=== PATIENT | female | born 1955 | race Caucasian/White ===

== ENCOUNTER 2020-05-22 15:36 | Inpatient (IN) | payer MEDICARE, MEDICAID ==
[~2020-05-22] VITALS: Ht 162.6 cm; Wt 63.6 kg
[2020-05-22] MEDS ORDERED: NO HOME MEDS (17:22)
[2020-05-22 17:23] LABS: BASOPHILS # (AUTO) 0.1 X10'3 (0-0.2); BASOPHILS % (AUTO) 0.7 % (0-1); EOSINOPHILS # (AUTO) 0.1 X10'3 (0-0.9); HEMATOCRIT 41.9 % (35.0-45.0); HEMOGLOBIN 14.4 g/dl (12.0-16.0); LYMPHOCYTES # (AUTO) 1.2 X10'3 (1.1-4.8); LYMPHOCYTES % (AUTO) 13.4 % (21-51); MEAN CORPUSCULAR HEMOGLOBIN 30.5 PG (27.0-31.0); MEAN CORPUSCULAR HGB CONC 34.3 g/dL (33.0-36.5); MEAN CORPUSCULAR VOLUME 88.8 FL (78-98); MEAN PLATELET VOLUME 7.6 FL (7.4-10.4); MONOCYTES # (AUTO) 0.5 X10'3 (0-0.9); NEUTROPHILS # (AUTO) 7.2 X10'3 (1.8-7.7); NEUTROPHILS % (AUTO) 78.9 % (42-75); PLATELET COUNT 263 X10'3 (140-440); RED BLOOD COUNT 4.72 X10'6 (4.20-5.60); RED CELL DISTRIBUTION WIDTH 12.7 % (11.5-14.5); WHITE BLOOD COUNT 9.1 X10'3 (4.5-11.0)
[2020-05-22] MEDS ORDERED: magnesium 4gm in 100ml NS 100 ML IV PRN (17:30)
[2020-05-22] MEDS ORDERED: HYDROcodone/acetaminophen 5mg/325mg tablet PO PRN (17:30)
[2020-05-22] MEDS ORDERED: mag hydrox/Alum hydrox/simeth 30ml oral suspension PO PRN (17:30)
[2020-05-22] MEDS ORDERED: acetaminophen 650mg rectal suppository RC PRN (17:30)
[2020-05-22] MEDS ORDERED: potassium Cl 20 mEq SR tablet PO PRN (17:30)
[2020-05-22] MEDS ORDERED: diphenhydrAMINE 25mg capsule PO PRN (17:30)
[2020-05-22] MEDS ORDERED: magnesium hydroxide 30ml (MOM) UD suspension PO PRN (17:30)
[2020-05-22] MEDS ORDERED: magnesium 2GM in 50ml NS 50 ML IV PRN (17:30)
[2020-05-22] MEDS ORDERED: magnesium Cl slow-release 64mg tablet PO PRN (17:30)
[2020-05-22] MEDS ORDERED: potassium CL 10mEq/100ml bag 100 ML IV PRN ×2 (17:30)
[2020-05-22] MEDS ORDERED: ondansetron/PF 4mg/2ml inj IV PRN (17:30)
[2020-05-22] MEDS ORDERED: morphine 2 MG/ML inj. syringe IV PRN ×2 (17:30)
[2020-05-22] MEDS ORDERED: bisacodyl 10mg suppository rectal RC PRN (17:30)
[2020-05-22] MEDS: normal saline 1000ml 1,000 ML IV SCH (17:30)
[2020-05-22] MEDS ORDERED: acetaminophen 325mg tablet PO PRN ×2 (17:30)
[2020-05-22 17:36] LABS: PARTIAL THROMBOPLASTIN TIME 24 SECONDS (22-32)
[2020-05-22 17:55] LABS: ALANINE AMINOTRANSFERASE 29 U/L (12-78); ALBUMIN 3.9 G/DL (3.4-5.0); ALBUMIN/GLOBULIN RATIO 0.9 (1.1-1.5); ALKALINE PHOSPHATASE 55 IU/L (46-116); ANION GAP 7 (8-16); ASPARTATE AMINO TRANSFERASE 22 U/L (10-37); BILIRUBIN,TOTAL 0.3 MG/DL (0.1-1.0); BLOOD UREA NITROGEN 23 MG/DL (7-18); BUN/CREATININE RATIO 27.1 (6.6-38.0); CALCIUM 8.8 MG/DL (8.5-10.1); CHLORIDE 106 MMOL/L (99-107); CREATININE 0.85 MG/DL (0.40-0.90); GLUCOSE 113 MG/DL (70-104); POTASSIUM 3.4 MMOL/L (3.5-5.1); SODIUM 140 MMOL/L (135-145); TOTAL CARBON DIOXIDE 27.4 MMOL/L (24-32); TOTAL PROTEIN 8.1 G/DL (6.4-8.2); eGFR 68 ML/MIN
[2020-05-22 17:59] LABS: HEMOGLOBIN A1C 5.2 % (4.5-6.2)
[2020-05-22] MEDS: HYDROcodone/acetaminophen 10/325mg tab PO PRN (19:08)
--- NOTE | 2020-05-22 19:14 | NUR ---
This RN is floating and assisting primary RN. A NaCL IV was established to existing saline lock in RFA at 100 ml an hour. Patient is alert and oriented X4. Pain is present to right hip, it is sharp in nature, patient rates a "9" on a 0-10 scale with any movement. A [place] 10 was given PO for pain. Patient tollerated well. This patient is most comfortable in a low fowlers position. A strong dorsalis pedis is present, this marketing underwriter marked the location with a pen olivia. Good distal CSM to the right foot.
[2020-05-22] MEDS: K and/or MAG REPLACEMENT MC SCH (20:00)
[2020-05-22] MEDS: heparin, porcine 5000 units/ml vial SQ SCH (20:21)
--- NOTE | 2020-05-22 20:45 | NUR ---
Report given to me by Swapna ABARCA and I will give report to Gabriella ABARCA.
--- NOTE | 2020-05-22 20:55 | NUR ---
Patient arrived to floor from ER on [facility] and she was transferred to [facility] via sliding board without difficulty.
[2020-05-22 21:00] VITALS: BP 122/71
[2020-05-22] MEDS ORDERED: temazepam 15mg capsule PO PRN (21:00)
[2020-05-22] MEDS: potassium Cl 20 mEq SR tablet PO PRN (22:22)
[2020-05-22] MEDS ORDERED: LIDOcaine 2% 10ml TOPICAL JELLY (Urojet) TP ONE (22:40)
[2020-05-23] VITALS (19 sets, daily range): BP systolic 91–136; BP diastolic 51–92
[2020-05-23] MEDS: potassium Cl 20 mEq SR tablet PO PRN (02:25)
[2020-05-23] MEDS: HYDROcodone/acetaminophen 10/325mg tab PO PRN ×2 (02:27→11:01)
[2020-05-23 03:15] LABS: CLARITY,URINE CLEAR (Clear); COLOR,URINE YELLOW (Yellow); GLUCOSE, URINE NEGATIVE (Neg); KETONES,URINE TRACE mg/dl (Neg); LEUKOCYTE ESTERASE ,URINE NEGATIVE (Neg); NITRITES, URINE NEGATIVE (Neg); OCCULT BLOOD,URINE TRACE-LYSED (Neg); PROTEIN,URINE NEGATIVE (Neg); UROBILINOGEN,URINE 0.2 E.U/dL (0.2-1.0)
[2020-05-23 03:28] LABS: UA COLLECTION TYPE FOLEY CATH
[2020-05-23 03:29] LABS: WBC,URINE NONE SEEN /HPF (0-4)
[2020-05-23 03:30] LABS: BACTERIA,URINE NONE SEEN /HPF (Neg); MUCUS STRANDS FEW /LPF (Neg); SQUAMOUS EPITHELIAL CELL,UR FEW /LPF (FEW)
[2020-05-23] MEDS: normal saline 1000ml 1,000 ML IV SCH ×3 (03:48→20:30)
--- NOTE | 2020-05-23 06:20 | NUR ---
Patient in room ORTHO 4022. I have received report from Gabriella Mathis and had the opportunity to ask questions and assume patient care.
--- NOTE | 2020-05-23 06:25 | NUR ---
Patient in room ORTHO 4022. I have received report from Gabriella Mathis and had the opportunity to ask questions and assume patient care.
--- NOTE | 2020-05-23 06:26 | NUR ---
Problems reprioritized. Patient report given, questions answered & plan of care reviewed with RIMA Almanza.
[2020-05-23 06:41] LABS: PARTIAL THROMBOPLASTIN TIME 24 SECONDS (22-32)
[2020-05-23 06:48] LABS: ALANINE AMINOTRANSFERASE 22 U/L (12-78); ALBUMIN/GLOBULIN RATIO 0.9 (1.1-1.5); ALKALINE PHOSPHATASE 47 IU/L (46-116); ANION GAP 7 (8-16); ASPARTATE AMINO TRANSFERASE 17 U/L (10-37); BILIRUBIN,TOTAL 0.5 MG/DL (0.1-1.0); BLOOD UREA NITROGEN 18 MG/DL (7-18); BUN/CREATININE RATIO 26.5 (6.6-38.0); CHLORIDE 111 MMOL/L (99-107); CHOL/HDL RATIO 2.9 (0.00-4.99); CHOLESTEROL 161 MG/DL (0-200); CREATININE 0.68 MG/DL (0.40-0.90); GLUCOSE 89 MG/DL (70-104); HDL CHOLESTEROL 56 MG/DL (35-60); LDL CHOLESTEROL 101 MG/DL (50-100); MAGNESIUM 2.1 MG/DL (1.5-2.4); PHOSPHORUS 3.8 MG/DL (2.3-4.5); POTASSIUM 4.4 MMOL/L (3.5-5.1); SODIUM 143 MMOL/L (135-145); TOTAL CARBON DIOXIDE 24.6 MMOL/L (24-32); TOTAL PROTEIN 6.4 G/DL (6.4-8.2); TRIGLYCERIDES 42 MG/DL (20-135); eGFR 87 ML/MIN
[2020-05-23] MEDS: K and/or MAG REPLACEMENT MC SCH ×2 (08:00→20:00)
[2020-05-23] MEDS: heparin, porcine 5000 units/ml vial SQ SCH ×2 (08:00→20:00)
[2020-05-23 08:20] LABS: BASOPHILS % (AUTO) 0.4 % (0-1); EOSINOPHILS # (AUTO) 0.2 X10'3 (0-0.9); EOSINOPHILS % (AUTO) 3.1 % (0-6); HEMATOCRIT 37.4 % (35.0-45.0); HEMOGLOBIN 12.7 g/dl (12.0-16.0); LYMPHOCYTES # (AUTO) 1.3 X10'3 (1.1-4.8); LYMPHOCYTES % (AUTO) 26.5 % (21-51); MEAN CORPUSCULAR HEMOGLOBIN 30.7 PG (27.0-31.0); MEAN CORPUSCULAR HGB CONC 34.1 g/dL (33.0-36.5); MEAN CORPUSCULAR VOLUME 90.2 FL (78-98); MONOCYTES # (AUTO) 0.4 X10'3 (0-0.9); MONOCYTES % (AUTO) 8.5 % (2-12); NEUTROPHILS # (AUTO) 3.1 X10'3 (1.8-7.7); NEUTROPHILS % (AUTO) 61.5 % (42-75); PLATELET COUNT 203 X10'3 (140-440); RED BLOOD COUNT 4.14 X10'6 (4.20-5.60); RED CELL DISTRIBUTION WIDTH 12.9 % (11.5-14.5); WHITE BLOOD COUNT 5.1 X10'3 (4.5-11.0)
[2020-05-23] MEDS ORDERED: famotidine/PF 10 mg/ml inj IV PRN (08:20)
[2020-05-23] MEDS ORDERED: pneumococcal 23-VAL P-sac vacc 25 mcg/0.5ml vial IMVAC ONE (10:00)
[2020-05-23] MEDS ORDERED: FLU VACC QS2020-21(6MOS UP)/PF 60 MCG/0.5 ML SYRINGE IMVAC ONE (10:00)
[2020-05-23] MEDS ORDERED: ringers solution, lacted 1,000 ML IV SCH (15:15)
[2020-05-23] MEDS ORDERED: proCHLORperazine 10 MG/2 ml inj IV PRN (15:15)
[2020-05-23] MEDS ORDERED: meperidine/PF 25mg/ml syringe IV PRN ×2 (15:15)
[2020-05-23] MEDS ORDERED: ondansetron/PF 4mg/2ml inj IV PRN (15:15)
[2020-05-23] MEDS ORDERED: morphine 2 MG/ML inj. syringe IV PRN (15:15)
--- NOTE | 2020-05-23 15:18 | NUR ---
Pt taken to OR
--- NOTE | 2020-05-23 15:22 | NUR ---
Problems reprioritized. Patient report given, questions answered & plan of care reviewed with Daksha in recovery.
[2020-05-23] MEDS ORDERED: fentaNYL/PF 50MCG/1 ML 2ML syringe ONE (16:06)
[2020-05-23] MEDS ORDERED: sevoflurane 250ml liquid IH ONE (16:07)
[2020-05-23] MEDS ORDERED: midazolam 2 mg/2 ml injection ONE (16:07)
[2020-05-23] MEDS ORDERED: propofol inj 20 ML IV ONE (16:28)
[2020-05-23] MEDS ORDERED: ceFAZolin 1000mg inj ONE ×2 (16:28)
--- NOTE | 2020-05-23 16:49 | NUR ---
Received from OR via ORTHO BED , accompanied by Anesthesiologist MONAE and report given by Anesthesiolgist. PATIENT WITH 20G PIV IN RIGHT UE RUNNING LR AT 100. FINN CATHETER PRESENT. RIGHT HIP ISLAND DRESSING IS CDI AND HAS A + DODRSALIS PEDIS. X RAY PRESENT AND TAKEN. POSITIONED TO COMFORT. Addendum: 05/23/20 at 1653 by Lang White RN, RN Amended: Links added.
[2020-05-23] MEDS: meperidine/PF 25mg/ml syringe IV PRN ×2 (17:00→17:16)
[2020-05-23] MEDS: morphine 4 MG/ML inj SYRINge IV PRN ×2 (17:00→17:16)
[2020-05-23] MEDS ORDERED: acetaminophen 1,000mg/100ml IV 100 ML IV ONE (17:20)
--- NOTE | 2020-05-23 17:30 | NUR ---
Received report from Lang in recovery
--- NOTE | 2020-05-23 17:49 | NUR ---
ALL CRITERIA FOR TRANSFER TO THE FLOOR HAS BEEN ACHIEVED. REPORT GIVEN AND ALL QUESTIONS ANSWERED, VSS. BED LOW 2 RAILS UP, CALL LIGHT PRESENT AND PATIENT HOOKED UP TO ALL LINES AND VSS. PATIENTS RIMA LUNA PRESENT TO ACCEPT CARE. Addendum: 05/23/20 at 1750 by Lang Griggs - RIMA ABARCA Amended: Links added.
--- NOTE | 2020-05-23 18:28 | NUR ---
Problems reprioritized. Patient report given, questions answered & plan of care reviewed with Pravin.
[2020-05-23] MEDS ORDERED: enoxaparin 40mg/0.4ml syringe SUBCUT SCH (20:00)
[2020-05-24] MEDS ORDERED: cefazolin/dext.iso 2gm/100ml 100 ML IV SCH
[2020-05-24 02:00] VITALS: BP 105/49
[2020-05-24 06:00] VITALS: BP 111/62
--- NOTE | 2020-05-24 06:30 | NUR ---
Problems reprioritized. Patient report given, questions answered & plan of care reviewed with Cami ABARCA.
[2020-05-24 06:33] LABS: BASOPHILS % (AUTO) 0.3 % (0-1); EOSINOPHILS # (AUTO) 0.2 X10'3 (0-0.9); EOSINOPHILS % (AUTO) 2.9 % (0-6); HEMATOCRIT 35.4 % (35.0-45.0); HEMOGLOBIN 12.1 g/dl (12.0-16.0); LYMPHOCYTES # (AUTO) 1.2 X10'3 (1.1-4.8); LYMPHOCYTES % (AUTO) 22.7 % (21-51); MEAN CORPUSCULAR HEMOGLOBIN 30.5 PG (27.0-31.0); MEAN CORPUSCULAR VOLUME 89.6 FL (78-98); MEAN PLATELET VOLUME 8.2 FL (7.4-10.4); MONOCYTES # (AUTO) 0.5 X10'3 (0-0.9); MONOCYTES % (AUTO) 8.7 % (2-12); NEUTROPHILS # (AUTO) 3.6 X10'3 (1.8-7.7); NEUTROPHILS % (AUTO) 65.4 % (42-75); PARTIAL THROMBOPLASTIN TIME 25 SECONDS (22-32); PLATELET COUNT 179 X10'3 (140-440); RED BLOOD COUNT 3.95 X10'6 (4.20-5.60); RED CELL DISTRIBUTION WIDTH 12.8 % (11.5-14.5); WHITE BLOOD COUNT 5.4 X10'3 (4.5-11.0)
--- NOTE | 2020-05-24 06:35 | NUR ---
Patient in room ORTHO 4022. I have received report from Pravin and had the opportunity to ask questions and assume patient care.
[2020-05-24 06:44] LABS: ALANINE AMINOTRANSFERASE 20 U/L (12-78); ALBUMIN 2.9 G/DL (3.4-5.0); ALBUMIN/GLOBULIN RATIO 0.8 (1.1-1.5); ALKALINE PHOSPHATASE 47 IU/L (46-116); ANION GAP 9 (8-16); ASPARTATE AMINO TRANSFERASE 12 U/L (10-37); BILIRUBIN,TOTAL 0.5 MG/DL (0.1-1.0); BLOOD UREA NITROGEN 15 MG/DL (7-18); BUN/CREATININE RATIO 22.1 (6.6-38.0); CHLORIDE 109 MMOL/L (99-107); CREATININE 0.68 MG/DL (0.40-0.90); GLUCOSE 90 MG/DL (70-104); MAGNESIUM 1.9 MG/DL (1.5-2.4); PHOSPHORUS 3.3 MG/DL (2.3-4.5); SODIUM 141 MMOL/L (135-145); TOTAL CARBON DIOXIDE 23.5 MMOL/L (24-32); TOTAL PROTEIN 6.4 G/DL (6.4-8.2); eGFR 87 ML/MIN
[2020-05-24] MEDS: ceFAZolin 2gm in dextrose, iso 50 ML IV SCH ×2 (07:16→16:39)
[2020-05-24] MEDS: normal saline 1000ml 1,000 ML IV SCH (07:16)
[2020-05-24] MEDS: heparin, porcine 5000 units/ml vial SQ SCH ×2 (07:22→22:02)
[2020-05-24] MEDS: K and/or MAG REPLACEMENT MC SCH ×2 (07:27→20:00)
[2020-05-24 10:00] VITALS: BP 114/63
[2020-05-24 14:00] VITALS: BP 136/67
[2020-05-24] MEDS ORDERED: HYDROcodone/acetaminophen 5mg/325mg tablet PO PRN (16:00)
[2020-05-24] MEDS: HYDROcodone/acetaminophen 10/325mg tab PO PRN ×2 (17:19→22:02)
--- NOTE | 2020-05-24 17:23 | NUR ---
Gave pt 10 mg [place], prior dose was 30 hours ago, pt had 1650 total mg of acetaminophen within the last 30 hours, however the eMAR showed 4000 mg. Called pharmacy, spoke to Marco who concurred. Marco replaced the order, it still shows 4000 mg received. Advised okay to give medication.
[2020-05-24 18:00] VITALS: BP 149/75
--- NOTE | 2020-05-24 18:17 | NUR ---
Problems reprioritized. Patient report given, questions answered & plan of care reviewed with Pravin.
[2020-05-24 22:00] VITALS: BP 107/58
[2020-05-24] MEDS: lactobacillus rhamnosus 10,000 MMU CELLS/CAPSULE PO SCH (22:01)
[2020-05-25] MEDS: ceFAZolin 2gm in dextrose, iso 50 ML IV SCH (00:36)
[2020-05-25] MEDS: HYDROcodone/acetaminophen 10/325mg tab PO PRN ×2 (05:11→14:41)
[2020-05-25 06:00] VITALS: BP 144/69
--- NOTE | 2020-05-25 06:30 | NUR ---
Received report from Pravin ABARCA, [facility] care.
[2020-05-25 06:37] LABS: PARTIAL THROMBOPLASTIN TIME 25 SECONDS (22-32)
[2020-05-25 06:59] LABS: ALANINE AMINOTRANSFERASE 25 U/L (12-78); ALBUMIN 2.9 G/DL (3.4-5.0); ALBUMIN/GLOBULIN RATIO 0.7 (1.1-1.5); ALKALINE PHOSPHATASE 48 IU/L (46-116); ANION GAP 8 (8-16); ASPARTATE AMINO TRANSFERASE 17 U/L (10-37); BILIRUBIN,TOTAL 0.3 MG/DL (0.1-1.0); BLOOD UREA NITROGEN 10 MG/DL (7-18); BUN/CREATININE RATIO 13.3 (6.6-38.0); CALCIUM 8.9 MG/DL (8.5-10.1); CHLORIDE 108 MMOL/L (99-107); CREATININE 0.75 MG/DL (0.40-0.90); GLUCOSE 102 MG/DL (70-104); PHOSPHORUS 3.6 MG/DL (2.3-4.5); POTASSIUM 3.7 MMOL/L (3.5-5.1); SODIUM 142 MMOL/L (135-145); TOTAL CARBON DIOXIDE 26.2 MMOL/L (24-32); TOTAL PROTEIN 6.8 G/DL (6.4-8.2); eGFR 78 ML/MIN
[2020-05-25 07:02] LABS: BASOPHILS % (AUTO) 0.3 % (0-1); EOSINOPHILS # (AUTO) 0.2 X10'3 (0-0.9); EOSINOPHILS % (AUTO) 3.1 % (0-6); HEMATOCRIT 36.9 % (35.0-45.0); HEMOGLOBIN 12.7 g/dl (12.0-16.0); LYMPHOCYTES # (AUTO) 1.6 X10'3 (1.1-4.8); LYMPHOCYTES % (AUTO) 26.6 % (21-51); MEAN CORPUSCULAR HEMOGLOBIN 30.9 PG (27.0-31.0); MEAN CORPUSCULAR HGB CONC 34.4 g/dL (33.0-36.5); MEAN CORPUSCULAR VOLUME 89.8 FL (78-98); MEAN PLATELET VOLUME 8.4 FL (7.4-10.4); MONOCYTES # (AUTO) 0.6 X10'3 (0-0.9); MONOCYTES % (AUTO) 9.2 % (2-12); NEUTROPHILS # (AUTO) 3.7 X10'3 (1.8-7.7); NEUTROPHILS % (AUTO) 60.8 % (42-75); PLATELET COUNT 190 X10'3 (140-440); RED BLOOD COUNT 4.11 X10'6 (4.20-5.60); WHITE BLOOD COUNT 6.1 X10'3 (4.5-11.0)
[2020-05-25] MEDS: K and/or MAG REPLACEMENT MC SCH (08:00)
[2020-05-25] MEDS: lactobacillus rhamnosus 10,000 MMU CELLS/CAPSULE PO SCH (08:24)
[2020-05-25] MEDS: heparin, porcine 5000 units/ml vial SQ SCH (08:25)
[2020-05-25 10:00] VITALS: BP 127/74
--- NOTE | 2020-05-25 14:18 | NUR ---
Gave report to Nicky ARMENTA at [facility] Patient to transfer soon.
--- NOTE | 2020-05-25 15:10 | NUR ---
Patient going to [facility], Leigh Ann Cargo here to transfer. F/C removed, patient tolerated well, IV removed, cathlon intact. Administered [place] for pain prior to transfer. Discharged to [facility] at this time.
== END 2020-05-25 15:00 | DRG 482 ==
LOC: ER 15:37 → ED HOLD 17:26 → ORTHO 4S 20:55
PROVIDERS: ADMIT Family Medicine; ATTEND Family Medicine
PROC: 0QSB34Z Reposition Right Lower Femur with Internal Fixation Device, Percutaneous Approach (ICD-10-PCS; principal; 2020-05-23 16:07)
DX: S72.001A Fracture of unspecified part of neck of right femur, initial encounter for closed fracture (principal); E87.6 Hypokalemia; Z20.828 Contact with and (suspected) exposure to other viral communicable diseases; W18.39XA Other fall on same level, initial encounter; Z96.642 Presence of left artificial hip joint; Y93.89 Activity, other specified; Y92.89 Other specified places as the place of occurrence of the external cause; Y99.8 Other external cause status; Z79.82 Long term (current) use of aspirin
CPT/HCPCS: 36415; 71045; 73501; 73502; 73552; 76000; 80053; 80061; 81001; 82948; 83036; 83735; 84100; 85025; 85610; 85730; 86885; 86900; 86901; 87081; 87635; 93005; 93308; 97110; 97116; 97161; 97530; 99285; A4618; A6222; A6455; A7000; C1713; G0378; J0131; J0690; J0780; J1644; J2175; J2250; J2270; J2704; J3010; J7030; J7120